=== PATIENT | male | born 1990 | race Caucasian/White ===

== ENCOUNTER → 2016-06-30 | Emergency (ER) | payer OTHER ==
[2016-06-30 10:32] VITALS: BP 112/56; PULSE 65; TEMP 97.4; BMI 23.5
--- NOTE | 2016-06-30 12:08 | PDOC ---
History of Present Illness - General Chief Complaint: Injury Stated Complaint: PAIN WRIST Time Seen by Provider: 06/30/16 11:57 - History of Present Illness Initial Comments: 06/30/16 12:03 patient is a 26 y/o male with no significant past medical history, patient reports he was boxing today and developed pain to his right wrist. he reports the pain worsens upon flexion of the wrist, he denies any paresthesia to the extremity. he denies any other injury. pt does reports he fractured his right wrist in 2006. Past History - Past Medical History Allergies/Adverse Reactions: Allergies Allergy/AdvReac Type Severity Reaction Status Date / Time CAT AdvReac Uncoded 07/01/14 10:38 Home Medications: Ambulatory Orders Azithromycin [Zithromax Z-ANDREA (5 DAYS)] 250 mg PO ASDIR #6 tablet 07/01/14 Mucinex 07/01/14 Oseltamivir Phosphate [Tamiflu -] 75 mg PO BID #10 capsule 07/01/14 Asthma: No Diabetes: No HTN: No - Immunization History Td Vaccination: Yes Immunization Up to Date: Yes - Psycho/Social/Smoking Cessation Hx Anxiety: No Suicidal Ideation: No Smoking Status: No Smoking History: Unknown if ever smoked Have you smoked in the past 12 months: No Number of Cigarettes Smoked Daily: 0 Information on smoking cessation initiated: No Hx Alcohol Use: No Drug/Substance Use Hx: No Review of Systems - Review of Systems Able to Perform ROS?: Yes Musculoskeletal: Yes: Other (right wrist pain) *Physical Exam - Vital Signs Last Vital Signs Temp Pulse Resp BP Pulse Ox 97.4 F L 65 16 112/56 100 06/30/16 10:20 06/30/16 10:20 06/30/16 10:20 06/30/16 10:20 06/30/16 10:20 - Physical Exam General Appearance: Yes: Appropriately Dressed HEENT: positive: Normal ENT Inspection, Normal Voice Neck: positive: Trachea midline, Supple Respiratory/Chest: positive: Lungs Clear, Normal Breath Sounds Cardiovascular: positive: Regular Rhythm, Regular Rate, S1, S2 Musculoskeletal: positive: Normal Inspection Extremity: positive: Other (right wrist-no point tenderness noted, no erythema no deformity noted, less than 3 second capillary refill, + 3 pedal pulse. pt is able to flex and extend and rotate the wrist without any difficulty. ) Progress Note - Progress Note Progress Note: pt is a 26 y/o male that presents with right wrist pain after particiapting in boxing practice today xray of right wrist, no acute fracture noted, + old fracture noted to the stylus process velcro splint applied advised strict follow up with orthopedist within 5 days if pain is not resolved. *DC/Admit/Observation/Transfer Diagnosis at time of Disposition: Wrist sprain Qualifiers: Encounter type: initial encounter Laterality: right Qualified Code(s): S63.501A - Unspecified sprain of right wrist, initial encounter - Discharge Dispostion Disposition: HOME Condition at time of disposition: Stable Admit: No - Referrals Referrals: Say Mcbride MD [Staff Physician] - - Patient Instructions Printed Discharge Instructions: DI for Wrist Sprain Additional Instructions: rest, tylenol or ibuprofen for pain as needed use wrist splint while awake if pain is not improved within 5 days please follow up with the orthopedist. - Post Discharge Activity Work/School Note: Back to Work
--- NOTE | 2016-06-30 12:24 | PDOC ---
*Physical Exam - Vital Signs Last Vital Signs Temp Pulse Resp BP Pulse Ox 97.4 F L 65 16 112/56 100 06/30/16 10:20 06/30/16 10:20 06/30/16 10:20 06/30/16 10:20 06/30/16 10:20 - Physical Exam Comments: 06/30/16 12:23 MIDLEVEL NOTE Pt seen by Midlevel Provider under my direct supervision. Pt interviewed and examined. Ancillary studies reviewed. I agree with plan as outlined by Midlevel Provider. Right wrist series as read by me No acute fracture is seen There is evidence of an old ulnar styloid fracture Splint and Abdiaziz applied Patient referred to orthopedics ED Treatment Course - RADIOLOGY Radiology Studies Ordered: Category Date Time Status WRIST- RIGHT [RAD] Stat Radiology 06/30/16 11:06 Taken *DC/Admit/Observation/Transfer Diagnosis at time of Disposition: Wrist sprain Qualifiers: Encounter type: initial encounter Laterality: right Qualified Code(s): S63.501A - Unspecified sprain of right wrist, initial encounter - Discharge Dispostion Disposition: HOME Condition at time of disposition: Stable - Referrals Referrals: Say Mcbride MD [Staff Physician] - - Patient Instructions Printed Discharge Instructions: DI for Wrist Sprain Additional Instructions: rest, tylenol or ibuprofen for pain as needed use wrist splint while awake if pain is not improved within 5 days please follow up with the orthopedist. - Post Discharge Activity Work/School Note: Back to Work
== END | disposition home or self-care (01) ==
LOC: FER 10:10
PROC: 2W3EX1Z Immobilization of Right Hand using Splint (ICD-10-PCS; principal; 2016-06-30)
DX: S63.501A Unspecified sprain of right wrist, initial encounter (principal); W20.8XXA Other cause of strike by thrown, projected or falling object, initial encounter; Y93.69 Activity, other involving other sports and athletics played as a team or group; Y92.39 Other specified sports and athletic area as the place of occurrence of the external cause
CPT/HCPCS: 73110-TC-RT; 99281-25

== ENCOUNTER 2016-12-27 19:30 | Emergency (ER) | payer OTHER ==
[2016-12-27 19:42] VITALS: BP 107/70; PULSE 78; TEMP 98.2; BMI 23.4
--- NOTE | 2016-12-27 19:47 | PDOC ---
History of Present Illness - General History Source: Patient Exam Limitations: No Limitations - History of Present Illness Initial Comments: The patient is a 26 yo M with no pertinent PMHx who presents s/p injuring his L hand with an axe 30 minutes ago. Patient reports he was cutting a harder piece of wood and the axe deflected when he struck the wood and went into his hand. Patient reports he is likely overdue for a tetanus shot. 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 Patient denies fevers and chills. Patient denies nausea, vomiting, diarrhea and abdominal pain. <Carolyn Ken - Last Filed: 12/27/16 20:03> <Angelica Watson - Last Filed: 12/28/16 00:12> - General Chief Complaint: Injury Stated Complaint: LEFT HAND LACERATION Time Seen by Provider: 12/27/16 19:38 Past History <Carolyn Ken - Last Filed: 12/27/16 20:03> - Past Medical History Asthma: No Diabetes: No HTN: No - Immunization History Td Vaccination: Yes Immunization Up to Date: Yes - Psycho/Social/Smoking Cessation Hx Anxiety: No Suicidal Ideation: No Smoking Status: No Smoking History: Never smoked Have you smoked in the past 12 months: No Number of Cigarettes Smoked Daily: 0 Hx Alcohol Use: No Drug/Substance Use Hx: No Substance Use Type: None <Angelica Watson - Last Filed: 12/28/16 00:12> - Past Medical History Allergies/Adverse Reactions: Allergies Allergy/AdvReac Type Severity Reaction Status Date / Time CAT AdvReac Uncoded 07/01/14 10:38 Home Medications: Ambulatory Orders NK [No Known Home Medication] 12/27/16 Review of Systems - Review of Systems Able to Perform ROS?: Yes Comments:: GENERAL/CONSTITUTIONAL: No fever or chills. No weakness. HEAD, EYES, EARS, NOSE AND THROAT: No change in vision. No ear pain or discharge. No sore throat. CARDIOVASCULAR: No chest pain or shortness of breath. RESPIRATORY: No cough, wheezing, or hemoptysis. GASTROINTESTINAL: No nausea, vomiting, diarrhea or constipation. GENITOURINARY: No dysuria, frequency, or change in urination. MUSCULOSKELETAL: L hand pain. L hand laceration. No neck or back pain. SKIN: No rash NEUROLOGIC: No headache, vertigo, loss of consciousness, or change in strength/ sensation. ENDOCRINE: No increased thirst. No abnormal weight change. HEMATOLOGIC/LYMPHATIC: No anemia, easy bleeding, or history of blood clots. ALLERGIC/IMMUNOLOGIC: No hives or skin allergy. <Carolyn Ken - Last Filed: 12/27/16 20:03> *Physical Exam - Vital Signs Last Vital Signs Temp Pulse Resp BP Pulse Ox 98.2 F 78 15 107/70 100 12/27/16 19:33 12/27/16 19:33 12/27/16 19:33 12/27/16 19:33 12/27/16 19:33 - Physical Exam Comments: GENERAL: The patient is awake, alert, and fully oriented, in no acute distress. HEAD:[Normal with no signs of trauma. EYES: Pupils equal, round and reactive to light, extraocular movements intact, sclera anicteric, conjunctiva clear. EXTREMITIES: Normal range of motion, 2.5 cm full thickness linear laceration of the radial aspect of the dorsum of the L hand. No obvious tendon involvement. No active bleeding. Distal extensor strength was intact. Fingers were warm and dry with excellent capillary refill. NEUROLOGICAL: Normal speech, normal gait. PSYCH: Normal mood, normal affect. SKIN: Warm, Dry, normal turgor, no rashes or lesions noted. <Carolyn Ken - Last Filed: 12/27/16 20:03> - Vital Signs Last Vital Signs Temp Pulse Resp BP Pulse Ox 98.2 F 78 15 107/70 100 12/27/16 19:33 12/27/16 19:33 12/27/16 19:33 12/27/16 19:33 12/27/16 19:33 <Angelica Watson - Last Filed: 12/28/16 00:12> Procedures - Laceration/Wound Repair Left Dorsal Hand Wound Length: to 2.5 cm Wound Explored: clean Wound's Depth, Shape: linear Irrigated w/ Saline: Yes Betadine Prep: No (hibiclens/ethanol) Anesthesia: 1% Lidocaine Amount of Anesthetic (ccs): 2 Wound Repaired With: Sutures Suture Size/Type: 4:0 Number of Sutures: 4 Layer Closure: No Sterile Dressing Applied: Yes Splint Applied: No Progress: Area of the wound was cleansed using Hibiclens/ethanol. 2 mL of 1% lidocaine infiltrated into the wound for local anesthesia. Wound irrigated using 80 mL of sterile normal saline. Wound draped and wound inspected. No evidence of tendon involvement/injury. No evidence of foreign body seen. Bone was not visualized at base of wound. Wound edges closely apposed and wound closed with 4 interrupted sutures of 4-0 nylon. Patient tolerated procedure well <Angelica Watson - Last Filed: 12/28/16 00:12> Medical Decision Making - Medical Decision Making Documentation has been prepared under my direction and personally reviewed by me in its entirety. I attest that this documented accurately reflects all work, treatment, procedures and medical decision making performed by me. As noted above, this otherwise healthy 26-year-old man presents with an injury to his left hand: Patient was chopping wood approximately an hour prior to presentation with a sharp ax when ax slipped and contacted the dorsum of his left hand. Patient sustained full-thickness laceration in the area of impact. No other injury sustained. Patient unsure of last tetanus prophylaxis. No history of poor wound healing or resistant organism colonization/infection. Exam as noted. Although no significant deformity/edema/ecchymosis of left hand seen on exam, left hand x-ray performed to rule out bony pathology in light of mechanism of injury (significant force being applied to ax in order to chop wood). Results of the x-ray discussed with radiologist environmental assistant, Dr. Fox. There is a tiny density along the radial aspect of the second metacarpal bone, consistent with either a tiny avulsion fracture or perhaps foreign body. Results of the x-ray discussed with the patient. During repair of the wound, close attention was given to presence of foreign body at the base of the wound. Also, copious irrigation of the wound with sterile normal saline was performed. On inspection, no evidence of foreign body was present and bone was not visualized at base of the wound. The patient was strongly advised that he have a short course (3 days) of antibiotics for prophylaxis of osteomyelitis if x-ray represented a small avulsion fracture. Although the patient understood the reasoning for the antibiotic use, he stated that he has a history of Lyme disease and because of long course of antibiotics, the "balance of bacteria" in his gastrointestinal tract was "messed up". Therefore, he refused antibiotic treatment. Patient will return to ER if area around laceration is swollen/more red/more painful. Original dressing will be kept in place for 48 hours then wound left open as much as possible. 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 Since this involves extensive use of his hands, he was advised not to work until sutures are removed. Patient agrees to this. Boostrix immunization given prior to discharge. <Angelica Watson - Last Filed: 12/28/16 00:12> *DC/Admit/Observation/Transfer - Attestations Scribe Attestion: Documentation prepared by Carolyn Ken, acting as medical insurance claims processor for Angelica Watson MD/DO. <Carolyn Ken - Last Filed: 12/27/16 20:03> <Angelica Watson - Last Filed: 12/28/16 00:12> Diagnosis at time of Disposition: Laceration of left hand Qualifiers: Encounter type: initial encounter Foreign body presence: without foreign body Qualified Code(s): S61.412A - Laceration without foreign body of left hand, initial encounter - Discharge Dispostion Disposition: HOME Condition at time of disposition: Stable - Patient Instructions Printed Discharge Instructions: How to Care for a Laceration After Repair Additional Instructions: Elevate left hand tonight Keep original dressing in place as dry as possible for 2 days No work until sutures removed Return to ER immediately if you have increased pain/redness/swelling in area of wound After 2 days, remove original dressing and keep open as much as possible( bandaid if needed) Have sutures removed in one week
[2016-12-27] MEDS ORDERED: DIPHTH,PERTUSS(ACELL),TET 0.5 ML DISP.SYRIN IM ONE (21:11)
--- NOTE | 2016-12-28 10:43 | PDOC ---
Patient Follow-up (Call Back) - Post ED Follow - Up Chief Complaint: pain Condition at time of discharge: Stable Disposition at time of original discharge: HOME Signs/Symptoms Improved: (pt called ed Co hand pain s/p injury and sutures) - Disposition Rx Needed: No Additional Instructions/Notes: d/w pt regarding need for hand followup. pt with hand injury hit with a hammer or wratchet, had sutures. xray concerning for FB vs. avulsion chip fx. pt refused abx . told he will need to return for repeat evaluation should he develop redness, swelling or any signs of infection. also given phone for [facility] hand orthopedist to followup with. told to elevate and ice hand to reduce swelling. also recommend ibuprofen 600 mg every 8 hours as needed for pain. for any concerns told to return to ed as can not evaluate hand over the phone.
== END 2016-12-27 21:17 | disposition home or self-care (01) ==
LOC: FER 19:30
PROC: 3E0234Z Introduction of Serum, Toxoid and Vaccine into Muscle, Percutaneous Approach (ICD-10-PCS; principal; 2016-12-27)
PROC: 0HQGXZZ Repair Left Hand Skin, External Approach (ICD-10-PCS; 2016-12-27)
DX: S61.412A Laceration without foreign body of left hand, initial encounter (principal); W27.0XXA Contact with workbench tool, initial encounter; Y93.89 Activity, other specified; Y92.9 Unspecified place or not applicable; Y99.0 Civilian activity done for income or pay
CPT/HCPCS: 73130-TC-LT; 90715; 99281-25